=== PATIENT | female | born 1985 | race Caucasian/White ===

== ENCOUNTER 2022-01-04 08:11 | Outpatient (CLI) | payer OTHER ==
[~2022-01-04 08:11] MED LIST: FOLIC ACID20 MG PO; IRON325 MG PO; PRENATAL 19 TA1 EACH PO
== END 2022-01-04 08:20 | disposition home or self-care (01) ==
LOC: SONOGRAMA 08:11
PROVIDERS: ATTEND Obstetrics & Gynecology
DX: R10.2 Pelvic and perineal pain (principal)

== ENCOUNTER 2024-03-23 09:03 | Outpatient (CLI) | payer OTHER | END 2024-03-23 09:12 | disposition home or self-care (01) | LOC: SONOGRAMA 09:03 | PROVIDERS: ATTEND Internal Medicine | DX: D50.0 Iron deficiency anemia secondary to blood loss (chronic) (principal); D56.3 Thalassemia minor; I10 Essential (primary) hypertension ==

== ENCOUNTER → 2024-04-12 | Outpatient (CLI) | payer OTHER | END | disposition home or self-care (01) | LOC: MRI 08:19 | DX: M47.12 Other spondylosis with myelopathy, cervical region (principal); G43.719 Chronic migraine without aura, intractable, without status migrainosus | CPT/HCPCS: 70553; 72156 ==